=== PATIENT | male | born 1955 | race Caucasian/White ===

== ENCOUNTER 2020-04-05 00:49 | Observation (INO) ==
[2020-04-05] MEDS ORDERED: ACETAMINOPHEN 1,000 MG/100 ML VIAL IV STA (01:04)
[2020-04-05] MEDS ORDERED: SODIUM CHLORIDE 0.9% 500 ML IV ONE (01:04)
[2020-04-05] MEDS ORDERED: ONDANSETRON INJ 2 MG/ML 2 ML VIAL IV STA (01:04)
--- NOTE | 2020-04-05 01:10 | Emergency Department Note ---
History of Present Illness General Chief complaint: Abdominal Pain Stated complaint: ABDOMINAL PAIN Time Seen by Provider: 04/05/20 00:58 History of Present Illness Maximum Pain Intensity: 5 This 64-year-old presents to the ER complaining of epigastric pain that wraps around to the back Location: Upper abdomen Quality: Painful Severity: Moderate Duration: Tonight Timing: Started around 9 PM Context: Patient was concerned and came in Modifying factors: better with nothing; worse with nothing Patient had a sandwich for dinner. He has vomited a few times. Patient denies chest pain, dyspnea, fevers, flulike illness, urinary symptoms. No history of similar symptoms in the past. States he does not smoke or drink. He states he has no active medical problems. Home Medications Home Medications Medication Instructions Recorded Confirmed Type montelukast 10 mg PO DAILY 04/05/20 04/05/20 History Allergies Allergy/AdvReac Type Severity Reaction Status Date / Time No Known Allergies Allergy Mild Unverified 01/10/08 09:36 Past Med/Surg History Medical History No acute medical problems Surgical History No pertinent past surgical history Social History Smoking Status: Never smoker Feels Safe at Home: Yes Review of Systems A total of 10 systems reviewed and were otherwise negative Physical Exam Vital Signs Vital Signs - 24 hr 04/05/20 00:53 04/05/20 01:37 04/05/20 04:51 Temperature 36.4 C L Temperature Source Oral Pulse Rate 51 L 51 L Pulse Rate from SpO2 Sensor 56 L Respiratory Rate 20 20 Respiratory Effort / Characteristics Non-Labored Spontaneous Respiratory Depth Normal Blood Pressure 155/81 H 151/82 H 137/75 Blood Pressure Mean 105 102 95 Pulse Oximetry 100 98 98 Oxygen Delivery Method Room Air Room Air Room Air Sepsis Recent Fever Within 48 Hours No Sepsis New/Unexplained Change in Mental Status No Sepsis Action Taken by Nursing No Action Required VITALS: Vitals are noted on the nurse's note and reviewed by myself. Vital signs stable. GENERAL: Pleasant male pacing the room who appears in pain, in no acute distress, nondiaphoretic, well-developed well-nourished. SKIN: Capillary reflex less than 2 seconds. HEENT: Normocephalic. PERRLA. EOMI. Nares patent. Mucous membranes moist. Neck is supple without nuchal rigidity. HEART: Regular rate and rhythm LUNGS: Clear to auscultation bilaterally without wheezes, rales or rhonchi. No retractions or accessory muscle use. ABDOMEN: Positive bowel sounds x 4. Normal tympanic percussion. Soft, nontender, without masses or organomegaly. Mendez sign negative. No guarding or rebound tenderness. No CVA tenderness MUSCULOSKELETAL: No gross musculoskeletal defects. NEURO: Patient was alert and oriented to person place and time. No focal neurological deficits. Course Administered Medications Discontinued Medications Sodium Chloride (Nss) 500 mls @ 999 mls/hr IV .Q31M ONE Stop: 04/05/20 01:34 Last Infusion: 04/05/20 02:16 Dose: 0 mls/hr Documented by: [id number] Admin: 04/05/20 01:31 Dose: 999 mls/hr Documented by: [id number] Acetaminophen (Ofirmev) 1,000 mg in 100 mls @ 400 mls/hr IV NOW STA Stop: 04/05/20 01:18 Last Infusion: 04/05/20 02:16 Dose: 0 mls/hr Documented by: [id number] Admin: 04/05/20 01:31 Dose: 400 mls/hr Documented by: [id number] Piperacillin Sod/Tazobactam Sod (Zosyn) 4.5 gm in 120 mls @ 240 mls/hr IV NOW ONE Stop: 04/05/20 02:12 Last Infusion: 04/05/20 03:19 Dose: 0 mls/hr Documented by: [id number] Admin: 04/05/20 02:20 Dose: 240 mls/hr Documented by: [id number] Pantoprazole Sodium 80 mg/ (Dextrose) 100 mls @ 400 mls/hr IV ONE STA Stop: 04/05/20 01:58 Last Admin: 04/05/20 03:53 Dose: Not Given Documented by: [id number] Ioversol (Ioversol 100ml) 100 ml IV ONCE ONE Stop: 04/05/20 01:58 Last Admin: 04/05/20 01:57 Dose: 94 ml Documented by: [id number] Ondansetron HCl (Ondansetron Inj 2 Mg/Ml 2 Ml Vial) 4 mg IV NOW STA Stop: 04/05/20 01:05 Last Admin: 04/05/20 01:31 Dose: 4 mg Documented by: [id number] Medical Decision Making Medical Records Attestation: I reviewed the patient's medical records. Home Medications Current Medication List: was personally reviewed by me Laboratory Data Attestation: I reviewed the patient's lab results. Result diagrams: 04/05/20 01:32 04/05/20 01:32 Lab Results 04/05/20 04/05/20 04/05/20 Range/Units 01:32 01:32 02:13 WBC 15.70 H (4.8-10.8) K/uL RBC 4.92 (4.7-6.1) M/uL Hgb 14.1 (14.0-18.0) g/dL Hct 44.1 (42-52) % MCV 89.6 (80-100) fL MCH 28.7 (25-34) pg MCHC 32.0 (32-36) g/dL RDW Std Deviation 42.8 (36.4-46.3) fL RDW Coeff of Miguel 13.1 (11.5-14.5) % Plt Count 199 (130-400) K/uL MPV 10.5 H (7.4-10.4) fL Immature Gran % (Auto) 0.3 % Neut % (Auto) 91.0 % Lymph % (Auto) 4.7 % [place] % (Auto) 3.8 % Eos % (Auto) 0.1 % Baso % (Auto) 0.1 % Neut # (Auto) 14.28 H (1.4-6.5) K/uL Lymph # (Auto) 0.74 L (1.2-3.4) K/uL [place] # (Auto) 0.60 H (0.11-0.59) K/uL Eos # (Auto) 0.02 (0-0.5) K/uL Baso # (Auto) 0.02 (0-0.2) K/uL Immature Gran # (Auto) 0.04 H (0.00-0.02) K/uL Sodium 141 (136-145) mmol/L Potassium 4.1 (3.5-5.1) mmol/L Chloride 107 (98-107) mmol/L Carbon Dioxide 29 (21-32) mmol/L Anion Gap 5.0 (3-11) BUN 27 H (7-18) mg/dl Creatinine 1.22 (0.6-1.4) mg/dl Est Cr Clr Drug Dosing 67.1 ml/min Est GFR ( Amer) 72.2 Est GFR (Non-Af Amer) 62.3 BUN/Creatinine Ratio 21.9 H (10-20) Glucose 129 H (70-99) mg/dl Lactate 1.4 (0.4-2.0) mmol/L Calcium 8.7 (8.5-10.1) mg/dl Total Bilirubin 0.4 (0.2-1) mg/dl AST 37 (15-37) U/L ALT 33 (12-78) U/L Alkaline Phosphatase 120 H (45-117) U/L Troponin I < 0.015 (0-0.045) ng/ml Total Protein 7.8 (6.4-8.2) gm/dl Albumin 4.2 (3.4-5.0) gm/dl Globulin 3.6 (2.5-4.0) gm/dl Albumin/Globulin Ratio 1.2 (0.9-2) Lipase 254 (73-393) U/L Urine Color Urine Appearance (Clear) Urine pH (4.5-7.5) Ur Specific [place] (1.000-1.030) Urine Protein (Negative) Urine Glucose (UA) (Negative) Urine Ketones (Negative) Urine Blood (Negative) Urine Nitrite (Negative) Urine Bilirubin (Negative) Urine Urobilinogen (Negative) Ur Leukocyte Esterase (Negative) COVID-19 Eval Order Blood Type Antibody Screen 04/05/20 04/05/20 04/05/20 Range/Units 02:13 04:00 04:40 WBC (4.8-10.8) K/uL RBC (4.7-6.1) M/uL Hgb (14.0-18.0) g/dL Hct (42-52) % MCV (80-100) fL MCH (25-34) pg MCHC (32-36) g/dL RDW Std Deviation (36.4-46.3) fL RDW Coeff of Miguel (11.5-14.5) % Plt Count (130-400) K/uL MPV (7.4-10.4) fL Immature Gran % (Auto) % Neut % (Auto) % Lymph % (Auto) % [place] % (Auto) % Eos % (Auto) % Baso % (Auto) % Neut # (Auto) (1.4-6.5) K/uL Lymph # (Auto) (1.2-3.4) K/uL [place] # (Auto) (0.11-0.59) K/uL Eos # (Auto) (0-0.5) K/uL Baso # (Auto) (0-0.2) K/uL Immature Gran # (Auto) (0.00-0.02) K/uL Sodium (136-145) mmol/L Potassium (3.5-5.1) mmol/L Chloride (98-107) mmol/L Carbon Dioxide (21-32) mmol/L Anion Gap (3-11) BUN (7-18) mg/dl Creatinine (0.6-1.4) mg/dl Est Cr Clr Drug Dosing ml/min Est GFR ( Amer) Est GFR (Non-Af Amer) BUN/Creatinine Ratio (10-20) Glucose (70-99) mg/dl Lactate (0.4-2.0) mmol/L Calcium (8.5-10.1) mg/dl Total Bilirubin (0.2-1) mg/dl AST (15-37) U/L ALT (12-78) U/L Alkaline Phosphatase (45-117) U/L Troponin I (0-0.045) ng/ml Total Protein (6.4-8.2) gm/dl Albumin (3.4-5.0) gm/dl Globulin (2.5-4.0) gm/dl Albumin/Globulin Ratio (0.9-2) Lipase (73-393) U/L Urine Color Yellow Urine Appearance Clear (Clear) Urine pH 5.0 (4.5-7.5) Ur Specific [place] 1.030 (1.000-1.030) Urine Protein Negative (Negative) Urine Glucose (UA) Negative (Negative) Urine Ketones Trace H (Negative) Urine Blood Negative (Negative) Urine Nitrite Negative (Negative) Urine Bilirubin Negative (Negative) Urine Urobilinogen Negative (Negative) Ur Leukocyte Esterase Negative (Negative) COVID-19 Eval Order Covid19 IDNow [facility] Blood Type O Negative Antibody Screen NEGATIVE Imaging Data Attestation: I personally reviewed and interpreted this imaging study as follows: MDM Narrative Prior records/ancillary studies reviewed. Triage Nursing notes reviewed. The patient's history was concerning for abdominal pain. Differential diagnosis: Etiologies such as appendicitis, diverticulitis, PUD, biliary pathology, UTI, pancreatitis, obstruction, mesenteric ischemia, aortic pathology, infections, inflammatory bowel disease, renal colic, as well as others were entertained. Physical examination findings: As above. ER treatment provided: An order was placed for continuous cardiac monitoring. The monitor shows a rate of 50-100 with a sinus rhythm. Tylenol, Zofran, Zosyn, IV fluids, Protonix On reassessment the patient felt better. Diagnostics interpreted by me: ECG: Normal sinus, normal intervals, no acute ST-T wave changes. Impression sinus bradycardia interpreted by myself EKG ordered for epigastric pain I think arrhythmia is unlikely. EKG shows normal sinus rhythm with no interval abnormalities such as QT prolongation or WPW. There are no findings to suggest Brugada syndrome. Cardiac monitoring in the emergency department reveals no tachycardic or bradycardic dysrhythmia. Hypertrophic cardiomyopathy was considered but there are no clear historical elements pointing toward this. EKG is not suggestive. The QRS voltage is not extremely large and there are no suggestive Q waves. The labs revealed leukocytosis, negative lactic acid Blood cultures pending Imaging studies: Chest x-ray concerning for free air underneath the right diaphragm for my interpretation. CT ABDOMEN & PELVIS With Contrast: No free air is visualized within the abdomen or pelvis. Normal appearance of the bowel. The appendix appears normal. The gallbladder is mildly distended with a small amount of surrounding pericholecystic fluid. No definite gallstone is seen. A right upper quadrant ultrasound would be a more sensitive exam to detect cholelithiasis if acute cholecystitis is a concern. Radiologist: Renata Osborne M.D. US RUQ: Limited examination due to bowel gas- most of exam was performed intercostally. Gallbladder wall is mildly thickened measuring just over 3 mm. There are echogenic nonvascular structures within the lumen of the gallbladder which likely represent small stones. Small amount of pericholecystic fluid is visualized. Findings could represent acute cholecystitis in the appropriate clinical setting. Radiologist: Renata Osborne M.D. Consultation: A consultation was placed with the surgical PAAly. The case was discussed and diagnostics were reviewed. The patient was evaluated in the ER for further treatment. Exam and history seem consistent with cholecystitis. Surgery evaluated and will admit. chest x-ray was concerning for free air so patient was immediately given Zosyn and 2 lines were placed and Protonix for possible peptic ulcer rupture. CAT scan was reviewed and negative per radiology. Ultrasound was ordered. Patient is admitted to the surgical service. By the evaluation outlined above emergent etiologies such as appendicitis, diverticulitis, PUD, UTI, pancreatitis, obstruction, mesenteric ischemia, aortic pathology,inflammatory bowel disease, renal colic, as well as others were deemed relatively unlikely. The pt informed about the findings as listed above. All questions were answered and pleased with the treatment. The chart was completed utilizing [employer] Speech voice recognition software. Grammatical errors, random word insertions, pronoun errors, and incomplete sentences are an occassional consequence of this system due to software limitations, ambient noise, and hardware issues. Any formal questions or concerns about the content, text, or information contained within the body of this dictation should be directly addressed to the physician project administrative assistant for clarification. Impression & Plan Cholecystitis Discharge Plan Visit Data Chief Complaint: Abdominal Pain Stated Complaint: ABDOMINAL PAIN ED Provider: Chhaya Cervantes ED Midlevel Provider: Cristal Pittman Discharge Problem: Cholecystitis Patient Disposition: Being Evaluated by Surgeon Condition: Good Forms Stand Alone Forms: Fisgo Prescriptions Prescriptions: No Action montelukast 10 mg tablet 10 mg PO DAILY RF: 0 Referrals Referrals: Javi Mcdaniels DO [Primary Care Provider] -
[2020-04-05 01:43] LABS: Basophils # (auto) 0.02 K/uL (0-0.2); Basophils % (auto) 0.1 %; Eosinophils # (auto) 0.02 K/uL (0-0.5); Eosinophils % (auto) 0.1 %; Hematocrit (blood only) 44.1 % (42-52); Hemoglobin 14.1 g/dL (14.0-18.0); Immature Granulocytes # (auto) 0.04 K/uL (0.00-0.02); Immature Granulocytes % (auto) 0.3 %; Lymphocytes # (auto) 0.74 K/uL (1.2-3.4); Lymphocytes % (auto) 4.7 %; Mean Corpuscular Hemoglobin 28.7 pg (25-34); Mean Corpuscular Volume 89.6 fL (80-100); Mean Platelet Volume 10.5 fL (7.4-10.4); Monocytes % (auto) 3.8 %; Neutrophils # (auto) 14.28 K/uL (1.4-6.5); Platelet Count 199 K/uL (130-400); RDW Coefficient of Variation 13.1 % (11.5-14.5); RDW Standard Deviation 42.8 fL (36.4-46.3); Red Blood Count 4.92 M/uL (4.7-6.1)
[2020-04-05] MEDS ORDERED: PIPERACILLIN/TAZOBACTAM 4.5 GM/120 ML BAG IV ONE (01:43)
[2020-04-05] MEDS ORDERED: PIPERACILL/TAZOBAC CONSULT ACTIVE PRN ×2 (01:43→08:42)
[2020-04-05] MEDS ORDERED: PANTOprazole 80 MG in DEXTROSE 5% 100 ML IV STA (01:44)
[2020-04-05] MEDS ORDERED: IOVERSOL 100ml IV ONE (01:57)
[2020-04-05 02:09] LABS: Alanine Aminotransferase 33 U/L (12-78); Albumin Level 4.2 gm/dl (3.4-5.0); Aspartate Aminotransferase 37 U/L (15-37); BUN Creatinine Ratio 21.9 (10-20); Blood Urea Nitrogen 27 mg/dl (7-18); Calcium 8.7 mg/dl (8.5-10.1); Carbon Dioxide 29 mmol/L (21-32); Chloride 107 mmol/L (98-107); Creatinine Clr Calc Pharmacy 67.1 ml/min; Est GFR (African American) 72.2; Est GFR (Non-African American) 62.3; Glucose 129 mg/dl (70-99); Lipase 254 U/L (73-393); Potassium 4.1 mmol/L (3.5-5.1); Sodium 141 mmol/L (136-145)
[2020-04-05 02:14] LABS: Albumin Globulin Ratio 1.2 (0.9-2); Alkaline Phosphatase 120 U/L (45-117); Bilirubin,Total 0.4 mg/dl (0.2-1); Globulin 3.6 gm/dl (2.5-4.0); Total Protein 7.8 gm/dl (6.4-8.2); Troponin I < 0.015 ng/ml (0-0.045)
[2020-04-05 04:14] LABS: Appearance Urine Clear (Clear); Bilirubin Urine Negative (Negative); Blood Urine Negative (Negative); Color Urine Yellow; Glucose Urine UA Negative (Negative); Ketones Urine Trace (Negative); Leukocyte Esterase Urine Negative (Negative); Nitrite Urine Negative (Negative); Protein Urine Negative (Negative); Urobilinogen Urine Negative (Negative)
--- NOTE | 2020-04-05 04:34 | History & Physical Report ---
Date of Service April 05, 2020 Assessment & Plan (1) Cholecystitis: -will admit to hospital an d plan on cholecystectomy -kep npo -hydrate with IVF -continue abx--he has received zosyn in ED -provide analgesics -provide anti-emetics -use SCDs for DVT prevention -EKG and CXR completed -COVID-19 test ordered and pending Dr[address] Granados-I did see the patient in the emergency room and he does appear to be stable I discussed laparoscopic cholecystectomy, possible open operation possible cholangiography With the patient and his they do understand and do wish to proceed We will proceed later today Asked [facility] to follow along History of Present Illness Chief Complaint: Abdominal Pain Primary Care Provider: Javi Mcdaniels, DO 64 year old male developed subcostal abdominal pain last night, about 1 hour after eating a snack. The pain was non-radiating with no other provocative factors. The pain was improved with analgesics provided in the ED. He denies fevers or diarrhea, but did have N/V. In the ED, he was afebrile with WBC of 15.7. CXR showed no pneumonia, but concern was noted for free air. A follow-up CT scan showed no free air, but GB wall thickening and pericholecystic fluid was noted. These findings were confirmed with US, along with possible gallstones. EKG showed sinus bradycardia without concern for ischemic changes The pt. states he is otherwise healthy, working out, biking and running several times per week. With his exercise, he denies CP, SOB, or unusual fatigue. At the time of my exam he was resting comfortably in bed, in no distress. Allergies Allergy/AdvReac Type Severity Reaction Status Date / Time No Known Allergies Allergy Mild Unverified 01/10/08 09:36 Home Medications Home Medications Medication Instructions Recorded Confirmed Type montelukast 10 mg PO DAILY 04/05/20 04/05/20 History Past Med/Surg History Medical History No acute medical problems Surgical History No pertinent past surgical history Social History Smoking Status: Never smoker Feels Safe at Home: Yes Review of Systems Constitutional: no fever and no sweats Eyes: no diplopia Ear, Nose, Mouth, Throat: no ear pain Respiratory: no cough and no dyspnea Cardiovascular: no chest pain Gastrointestinal: + abdominal pain, + nausea and + vomiting; no diarrhea/loose stools Genitourinary: no dysuria Musculoskeletal: no back pain Integumentary: no rash Neurologic: no localized weakness Physical Exam Constitutional: well developed and well nourished; no acute distress Eyes: no conjunctival abnormality ENMT: Ears: no hearing impairment Neck: trachea midline Respiratory: normal respiratory effort, lungs clear to auscultation Cardiovascular: Rate/Rhythm: regular rate and regular rhythm Gastrointestinal (Abdomen): soft, non-distended, no rebound tenderness or guarding, minimal pain with palpation, although deep palpation of RUQ caused some discomfort, Mendez's sign (-) Musculoskeletal: n ocalf pain Skin: no rashes, warm and dry Neurologic: moves all extremities Psychiatric: A+Ox3, euthymic affect Results & Data Results & Data ([facility]) Vital Signs (Past 12 Hours) Vital Signs Temp Pulse Resp BP Pulse Ox 04/05/20 01:37 51 L 20 151/82 H 98 04/05/20 00:53 36.4 C L 51 L 20 155/81 H 100 PG Care Time/CCT Total # of Minutes Spent Total Time Spent with Patient: Total time spent is greater than 50% in coordination of care (as documented) at patient's floor/unit and/or counseling patient: Coding Level of Care Code 91803 Initial Inpt Care Lvl 3 Diagnoses Cholecystitis K81.9
--- NOTE | 2020-04-05 06:34 | Ultrasound Report ---
US gallbladder HISTORY: 64 years-old Male ruq pain acute right upper quadrant abdominal pain COMPARISON: CT abdomen and pelvis of same day TECHNIQUE: Multiple real-time sonographic images of the abdominal right upper quadrant were obtained assessing grayscale appearance and color flow FINDINGS: The visualized pancreas is unremarkable. Study is limited secondary to obscuring bowel gas. Liver is within normal limits. Small amount of pericholecystic fluid. The gallbladder wall is mildly thickened measuring up to 3.3 mm. Shadowing cholelithiasis with gallbladder sludge. Mild gallbladder distentio n. The patient was given pain medication prior to the study, therefore sonographic Mendez's sign was unable to be evaluated. Normal common bile duct, 4 mm. The imaged right kidney is unremarkable withou t hydronephrosis. IMPRESSION: 1. Limited study secondary to obscuring bowel gas. 2. Distended gallbladder with wall thickening, pericholecystic fluid and probable cholelithiasis. Fin dings are suspicious for acute cholecystitis in the appropriate clinical setting. 3. No biliary ductal dilation. ACT 112: Negative or not required by law. The above report was generated using voice recognition software. It may contain grammatical, syntax o r spelling errors. Electronically signed by: Branden Lion M.D. 04/05/2020 6:33 AM
--- NOTE | 2020-04-05 07:10 | XRay Report ---
XR chest 1V portable CLINICAL HISTORY: Epigastric pain. COMPARISON STUDY: No previous studies for comparison. FINDINGS: Lung volumes are normal. Lungs are clear. There is no pneumothorax or pleural effusion. Car diac size is normal. Mediastinal contours are normal. There is no evidence for pulmonary edema. IMPRESSION: No acute cardiopulmonary findings. ACT 112: Negative or not required by law. Electronically signed by: Luciano Mustafa M.D. 04/05/2020 7:08 AM
--- NOTE | 2020-04-05 07:35 | CT Scan Report ---
ABDOMEN AND PELVIS CT WITH IV CONTRAST CT DOSE: 536.72 mGy.cm HISTORY: Acute severe right upper quadrant abdominal pain epi pain that wraps around to back TECHNIQUE: Multiaxial CT images of the abdomen and pelvis were performed following the IV administrat ion of 94 cc of Optiray 320, A dose lowering technique was utilized adhering to the principles of AL FAIZAN. COMPARISON STUDY: Right upper quadrant abdominal ultrasound of same day FINDINGS: 6 mm nodular opacity of the lateral basal segment right lower lobe on image 54 series 3, ma y reflect an area of linear scarring. 4 mm subpleural nodule of the lateral basal segment left lower lobe. There is no pneumatosis or pneumoperitoneum. The imaged inferior cardiac chambers are unremarka ble with coronary artery calcifications. The spleen, pancreas and adrenal glands are unremarkable. Th ere is mild periportal edema with otherwise unremarkable appearance of the liver. Gallbladder is mild ly distended and demonstrates wall thickening with small amount of pericholecystic fluid. No definite cholelithiasis, choledocholithiasis or biliary ductal dilation. Patency of the hepatic and portal ve ins. Unremarkable right kidney. 2.2 cm cyst of the anterior interpolar left kidney with a few additional s ubcentimeter left renal hypodensities which are too small to characterize however also favors cysts. No renal or ureteral calculi or obstructive uropathy. Partially decompressed urinary bladder. Mild pr ostamegaly. No aortic aneurysm or adenopathy. Radiodense material is noted within the gastric lumen. Mild rectal wall thickening is likely secondar y to partial distention. Colonic diverticulosis without acute diverticulitis. Normal appendix. Stool- filled terminal ileum suggest decreased small bowel transit. Unremarkable soft tissues. Moderate disc space narrowing at L5-S1. Bones appear intact. IMPRESSION: 1. Gallbladder distention with associated wall thickening and pericholecystic fluid. No cholelithiasi s identified. Correlate with right upper quadrant abdominal ultrasound of same day to exclude acute c holecystitis. 2. No biliary ductal dilation. 3. No bowel obstruction. 4. Normal appendix. 5. There are two subpleural nodular foci of the lung bases measuring up to 6 mm. Correlation with a n onemergent follow-up chest CT may be considered to evaluate for additional pulmonary nodules and to d etermine appropriate follow-up. 6. Additional findings as above. ACT 112: Negative or not required by law. The above report was generated using voice recognition software. It may contain grammatical, syntax o r spelling errors. Electronically signed by: Branden Lion M.D. 04/05/2020 7:34 AM
[2020-04-05] MEDS ORDERED: PROMETHAZINE HCL 12.5 MG in SODIUM CHLORIDE 0.9% 50 ML IV PRN (08:42)
[2020-04-05] MEDS ORDERED: ONDANSETRON INJ 2 MG/ML 2 ML VIAL IV PRN ×3 (08:42→13:00)
[2020-04-05] MEDS ORDERED: PROMETHAZINE HCL 25 MG in SODIUM CHLORIDE 0.9% 50 ML IV PRN (08:42)
[2020-04-05] MEDS ORDERED: MoRPHine SULFATE 2 MG/ML CARP IV PRN (08:42)
[2020-04-05] MEDS ORDERED: HYDROmorphone INJ 0.5 MG/0.5 ML SYR IV PRN (08:42)
[2020-04-05] MEDS ORDERED: HYDROmorphone INJ 1 MG/ML SYRINGE IV PRN (08:42)
--- NOTE | 2020-04-05 09:54 | Consultation ---
Date of Consultation April 05, 2020 Assessment & Plan (1) Cholecystitis: Acute cholecystitis Leukocytosis, 15k LFTS WNL No s/sx of sepsis, blood culture pending sx much improved pt admitted to med/surg by gen surg consulted for med management continue NPO status for surgery later today IV zosyn pain/wound management per ortho encourage incentive spirometry (2) Prediabetes: Last A1C 02/2020 6.0 diet and lifestyle modifications add bsg, hypoglycemic protocol given NPO status (3) HLD (hyperlipidemia): controlled with diet and exercise follow Dr. Mcdaniels (4) DVT prophylaxis: SCD/TEDS, per attending Disposition: to undergo lap cleo later today Follow up: PCP Dr. Mcdaniels upon discharge Pt was seen and examined in collaboration with Dr. Degroot, please see addendum Supervising Physician Co-Signing Physician Notes I have seen and examined the patient and have discussed the case with the provider above. I agree with the assessment and plan as stated. I reviewed the records preoperatively and there were no contraindications to proceeding with surgery today. I saw and examined the patient post-operatively who was doing very well. He had tolerating regular food, and was able to move around his bed with ease and little pain. He was ambulatory. He was encouraged to take it easy. Zosyn was running perioperatively. Overall looks well and good plan currently. Thank you for this consultation. DO Zane History of Present Illness Requesting Physician: Dr. Granados Reason for Consultation: Medical management Atten ding Physician: Lele Granados MD, [facility] History of Present Illness This is a 64-year-old male who is significant past medical history of diet-controlled hyperlipidemia, prediabetes and elevated PSA who presents to ED secondary to abdominal pain. He underwent CT abdomen pelvis as well as gallbladder ultrasound which revealed distended gallbladder with wall thickening, pericholecystic fluid and probable cholelithiasis. Findings suspicious for acute cholecystitis. No biliary ductal dilatation. CBC revealed relative leukocytosis, LFTs unremarkable, BMP consistent with mild hyperglycemia. He was admitted to undergo laparoscopic cholecystectomy later today. We have been consulted for medical management. Currently he feels much improved and denies any abdominal pain. He denies any fever, chills, sweats, lightheadedness, dizziness, chest pain, shortness breath, cough, nausea, vomiting, dysuria, increased urgency or frequency with urination, melena, hematochezia. Last BM 8:30 AM yesterday. He admits to enzo colored stools for the last several months. He states last evening for dinner he had a sub and 2 chocolate chip cookies with skin milk at approximately 830. Later that evening he developed right upper quadrant and epigastric pain that persistently got worse. He had persistent nausea with 2 episodes of vomiting. Due to worsening symptoms he presented to ED. He does not take any medications at home. He is very active and goes to the gym 2 to 3 days a week. During those days he runs 3 to 6 miles 2 days a week and bikes the other day. He denies any chest pain or shortness of breath when undergoing these activities. He does have a strong family history of heart disease but does not have any prior history of heart disease. He denies smoking or alcohol use. Medical records reviewed in [facility]. Allergies Allergy/AdvReac Type Severity Reaction Status Date / Time No Known Allergies Allergy Mild Unverified 04/05/20 12:09 Patient History Medical History (Updated 04/05/20 @ 12:41 by Vicky Martinez MD) Elevated PSA HLD (hyperlipidemia) Prediabetes Surgical History (Updated 04/05/20 @ 13:40 by Bela Moore RN) History of colonoscopy with polypectomy 2006 with hyperplastic polyp removal Colonoscopy in 2017 revealed diverticulosis History of thumb surgery Left status post fracture History of tonsillectomy and adenoidectomy Hx laparoscopic cholecystectomy (04/05/20) Laparoscopic Cholecystectomy Dr. 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 Beliefs That Will Affect Care: None Current Living Situation: Spouse Other Information That Helps Us Care for You: No Feels Safe at Home: Yes Safety Concerns: Feels Safe At This Time Assistive Devices: Glasses Review of Systems Review of Systems: All systems reviewed & are unremarkable except as noted in HPI & below Physical Exam Physical Exam: Constitutional: WD/WN, vitals as above, NAD, sitting up in bed, pleasant, conversing easily Head: Normocephalic, Atraumatic Eyes: PERRL, conjunctivae normal, anicteric sclerae ENMT: external ear and nose normal, oropharynx normal Neck: trachea midline, no thyromegaly normal visual inspection Respiratory: normal respiratory effort, lungs clear to auscultation, no wheeze, rales, rhonchi. Normal insp/exp effort, no accessory muscle use Cardiovascular: bradycardic rate, reg rhythm, no murmur, no edema Vessels: no JVD or carotid bruit Chest: normal inspection of chest Abdomen: normal bowel sounds, soft, nontender, no hepatosplenomegaly Musculoskeletal: no cyanosis or clubbing, extremities motor strength 5/5 Skin: no rashes, warm and dry normal turgor Neurologic: PERRL, EOMI, accommodation nl, no face palsy, no dysarthria CN's II-XI intact bilaterally and moves all extremities Psychiatric: A+Ox3, euthymic affect : deferred Results & Data ([facility]) Vital Signs (Past 12 Hours) Vital Signs Temp Pulse Pulse Resp BP BP Pulse Ox 04/05/20 09:22 36.8 C 60 18 148/80 H 96 04/05/20 08:50 36.8 C 60 18 148/60 H 96 04/05/20 07:45 54 L 16 117/77 95 04/05/20 06:30 125/76 97 04/05/20 06:00 124/77 98 04/05/20 05:30 113/73 98 04/05/20 05:00 120/74 97 04/05/20 04:51 137/75 98 04/05/20 01:37 51 L 20 151/82 H 98 04/05/20 00:53 36.4 C L 51 L 20 155/81 H 100 Laboratory Results Short CBC 04/05/20 04/05/20 Range/Units 01:32 01:32 WBC 15.70 H (4.8-10.8) K/uL Hgb 14.1 (14.0-18.0) g/dL Hct 44.1 (42-52) % Plt Count 199 (130-400) K/uL Creatinine 1.22 (0.6-1.4) mg/dl BMP 04/05/20 01:32 Sodium 141 Potassium 4.1 Chloride 107 Carbon Dioxide 29 BUN 27 H Creatinine 1.22 Glucose 129 H Calcium 8.7 Cardiac Enzymes 04/05/20 Range/Units 01:32 Troponin I < 0.015 (0-0.045) ng/ml Liver Function 04/05/20 Range/Units 01:32 Total Bilirubin 0.4 (0.2-1) mg/dl AST 37 (15-37) U/L ALT 33 (12-78) U/L Alkaline Phosphatase 120 H (45-117) U/L Albumin 4.2 (3.4-5.0) gm/dl Urine 04/05/20 Range/Units 04:00 Urine Color Yellow Urine Appearance Clear (Clear) Urine pH 5.0 (4.5-7.5) Ur Specific [place] 1.030 (1.000-1.030) Urine Protein Negative (Negative) Urine Glucose (UA) Negative (Negative) Diagnostic Findings Gallbladder US: IMPRESSION: 1. Limited study secondary to obscuring bowel gas. 2. Distended gallbladder with wall thickening, pericholecystic fluid and probable cholelithiasis. Findings are suspicious for acute cholecystitis in the appropriate clinical setting. 3. No biliary ductal dilation. CXR: IMPRESSION: No acute cardiopulmonary findings. CT Abd/pelvis: IMPRESSION: 1. Gallbladder distention with associated wall thickening and pericholecystic fluid. No cholelithiasis identified. Correlate with right upper quadrant abdominal ultrasound of same day to exclude acute cholecystitis. 2. No biliary ductal dilation. 3. No bowel obstruction. 4. Normal appendix. 5. There are two subpleural nodular foci of the lung bases measuring up to 6 mm. Correlation with a nonemergent follow-up chest CT may be considered to evaluate for additional pulmonary nodules and to determine appropriate follow-up. 6. Additional findings as above. Medications Administered Discontinued Medications Sodium Chloride (Nss) 500 mls @ 999 mls/hr IV .Q31M ONE Stop: 04/05/20 01:34 Last Infusion: 04/05/20 02:16 Dose: 0 mls/hr Documented by: [id number] Admin: 04/05/20 01:31 Dose: 999 mls/hr Documented by: [id number] Acetaminophen (Ofirmev) 1,000 mg in 100 mls @ 400 mls/hr IV NOW STA Stop: 04/05/20 01:18 Last Infusion: 04/05/20 02:16 Dose: 0 mls/hr Documented by: [id number] Admin: 04/05/20 01:31 Dose: 400 mls/hr Documented by: [id number] Piperacillin Sod/Tazobactam Sod (Zosyn) 4.5 gm in 120 mls @ 240 mls/hr IV NOW ONE Stop: 04/05/20 02:12 Last Infusion: 04/05/20 03:19 Dose: 0 mls/hr Documented by: [id number] Admin: 04/05/20 02:20 Dose: 240 mls/hr Documented by: [id number] Pantoprazole Sodium 80 mg/ (Dextrose) 100 mls @ 400 mls/hr IV ONE STA Stop: 04/05/20 01:58 Last Admin: 04/05/20 03:53 Dose: Not Given Documented by: [id number] Ioversol (Ioversol 100ml) 100 ml IV ONCE ONE Stop: 04/05/20 01:58 Last Admin: 04/05/20 01:57 Dose: 94 ml Documented by: [id number] Ondansetron HCl (Ondansetron Inj 2 Mg/Ml 2 Ml Vial) 4 mg IV NOW STA Stop: 04/05/20 01:05 Last Admin: 04/05/20 01:31 Dose: 4 mg Documented by: [id number] ECG Rate (beats per minute): 50 Rhythm: sinus bradycardia
[2020-04-05] MEDS ORDERED: GLUCAGON FOR INJ 1 MG VIAL SQ PRN (09:55)
[2020-04-05] MEDS ORDERED: DEXTROSE 50% 50 ML SYRINGE IV PRN (09:55)
[2020-04-05] MEDS ORDERED: GLUCOSE 10 TABS/TUBE PO PRN (09:55)
[2020-04-05] MEDS ORDERED: GLUCOSE 40% GEL 15 GM TUBE PO PRN (09:55)
[2020-04-05] MEDS ORDERED: CARBOHYDRATES FOR HYPOGLYCEMIA PO PRN (09:55)
[2020-04-05] MEDS: LACTATED RINGER'S 1,000 ML IV SCH ×2 (10:06→16:01)
[2020-04-05] MEDS: PIPERACILLIN/TAZOBACTAM 3.375 GM in DEXTROSE 5% 100 ML IV SCH ×2 (10:06→18:40)
--- NOTE | 2020-04-05 11:51 | Electrocardiogram Report ---
Test Reason : Blood Pressure : / mmHG Vent. Rate : 050 BPM Atrial Rate : 050 BPM P-R Int : 144 ms QRS Dur : 080 ms QT Int : 486 ms P-R-T Axes : 013 027 008 degrees QTc Int : 443 ms Sinus bradycardia Otherwise normal ECG When compared with ECG of 12-JAN-2008 16:27, Vent. rate has decreased BY 24 BPM Confirmed by Lenin Nicholas ([id number]) on 04/05/2020 11:51:34 AM Referred By: REFERRED SELF Confirmed By:Lenin Nicholas
[2020-04-05] MEDS ORDERED: PROPOFOL IV EMULSION 10 MG/ML 20 ML VIAL IV ONE (12:04)
[2020-04-05] MEDS ORDERED: GLYCOPYRROLATE 0.2 MG/ML VIAL ONE (12:04)
[2020-04-05] MEDS ORDERED: fentaNYL citrate 100 MCG/2 ML VIAL ONE ×2 (12:04)
[2020-04-05] MEDS ORDERED: NEOSTIGMINE METHYLSULFATE 5 MG/5 ML SYR ONE (12:04)
[2020-04-05] MEDS ORDERED: LIDOCAINE HCL 2% 2 ML VIAL/AMP(20MG/ML) INFIL ONE (12:04)
[2020-04-05] MEDS ORDERED: DEXAMETHASONE SOD INJ 4 MG/ML VIAL ONE (12:04)
[2020-04-05] MEDS ORDERED: ONDANSETRON INJ 2 MG/ML 2 ML VIAL ONE (12:04)
[2020-04-05] MEDS ORDERED: MIDAZOLAM HCL 1 MG/ML 2ML VIAL ONE (12:04)
[2020-04-05] MEDS ORDERED: ROCURONIUM BROMIDE 10 MG/ML 5 ML VIAL IV ONE (12:05)
[2020-04-05] MEDS ORDERED: LARYING-O-JET KIT (LTA) ONE (12:05)
[2020-04-05] MEDS ORDERED: BUPIVACAINE 0.5 % 5 MG/1 ML MPF 30ML VIAL ONE (12:22)
--- NOTE | 2020-04-05 12:37 | Anesthesiology Consultation ---
Date of Service April 05, 2020 Assessment & Plan (1) Encounter for pre-operative examination: Chart Review Chart Review: Acceptable Risk for Surgery and Patient NOT seen in Pre Admission Testing Consults Requested none ASA ASA2 Proposed Anesthesia Anesthesia Type: General Risk / Benefits Reviewed With: PT / POA / Parent / Guardian, Accepts Plan and Informed Consent Obtained History Surgery Operation Date: 04/05/20 08:20 Proposed Procedures p Laparoscopic Cholecystectomy, Possible Open - Lele Granados MD, FACS Height/Weight Height: 5 ft 11 in Weight: 88.9 kg Allergies Allergy/AdvReac Type Severity Reaction Status Date / Time No Known Allergies Allergy Mild Unverified 04/05/20 12:09 Medications Active Medications Generic Name Dose Route Start Last Admin Trade Name Freq PRN Reason Stop Dose Admin Lactated Ringer's 1,000 mls @ 75 mls/hr 04/05/20 08:42 04/05/20 11:09 Lr IV 05/05/20 08:41 75 mls/hr .[id number] CARL Infusion Piperacillin Sod/Tazobactam 115 mls @ 28.75 mls/hr 04/05/20 10:00 04/05/20 10:06 Sod 3.375 gm/ Dextrose IV 04/15/20 09:59 28.8 mls/hr Q8H CARL Administration Protocol NPO Date Last Intake of Fluids: 04/04/20 Time Last Intake of Fluids: 23:59 Date Last Intake of Solids: 04/04/20 Time Last Intake of Solids: 20:00 Past Medical History Medical History Elevated PSA HLD (hyperlipidemia) Prediabetes Exercise / Class Metabolic Activity II 4-5 Yardwork/Stairs/Walk up hill Negative for chest pain or shortness of breath. Past Family History Family History Mother Pancreatic cancer Grandfather Coronary heart disease Father , of covid -19 complications Pre-diabetes COVID-19 Stroke Brother Diabetes Past Surgical History Surgical History History of colonoscopy with polypectomy 2006 with hyperplastic polyp removal Colonoscopy in 2017 revealed diverticulosis History of thumb surgery Left status post fracture History of tonsillectomy and adenoidectomy Past Anesthesia History No Hx of Anesthesia Complications History of PONV No Hx of PONV Social History Smoking Status: Never smoker Do You Dip or Chew Tobacco: No Hx Alcohol Use: No Hx Substance Use: No substance use type: does not use Review of Systems Patient denies active symptoms of GERD. Physical Exam Vital Signs Last Vital Signs Temp 36.7 C 04/05/20 12:09 Pulse 64 04/05/20 12:09 Resp 18 04/05/20 12:09 BP 136/73 04/05/20 12:09 Pulse Ox 99 04/05/20 12:09 Constitutional not obese ENMT Mouth: + small oral opening; no TMJ abnormality Thyromental Distance: > or= 3.5 Finger Breadths Mallampati Class: II Neck normal visual inspection; neck extension not limited Respiratory normal respiratory effort Auscultation: lungs clear to auscultation bilaterally Cardiovascular Rate/Rhythm: regular rate and regular rhythm Heart Sounds: no murmur Neurologic moves all extremities Psychiatric Orientation: alert and oriented x 3 Testing Laboratory Results 04/05/20 01:32 04/05/20 01:32 Urine Color Yellow 04/05/20 04:00 Urine Appearance Clear (Clear) 04/05/20 04:00 Urine pH 5.0 (4.5-7.5) 04/05/20 04:00 Ur Specific [place] 1.030 (1.000-1.030) 04/05/20 04:00 Urine Protein Negative (Negative) 04/05/20 04:00 Urine Glucose (UA) Negative (Negative) 04/05/20 04:00 Urine Ketones Trace (Negative) H 04/05/20 04:00 Urine Nitrite Negative (Negative) 04/05/20 04:00 Ur Leukocyte Esterase Negative (Negative) 04/05/20 04:00 Blood Type O Negative 04/05/20 02:13 Antibody Screen NEGATIVE 04/05/20 02:13
[2020-04-05] MEDS ORDERED: ATROPINE SULFATE 0.1 MG/ML 10ML SYR IV PRN (13:00)
[2020-04-05] MEDS ORDERED: fentaNYL citrate 100 MCG/2 ML VIAL IV PRN (13:00)
[2020-04-05] MEDS ORDERED: ePHEDrine sulfate 50 MG/ML AMP IV PRN (13:00)
[2020-04-05] MEDS ORDERED: ACETAMINOPHEN 1000 MG/100 ML IV IV ONE (13:23)
[2020-04-05] MEDS ORDERED: ACETAMINOPHEN 1,000 MG/100 ML VIAL IV ONE (13:37)
--- NOTE | 2020-04-05 13:37 | Post Operative Brief Note ---
PG Immediate Post Op with CF Date of Surgery April 05, 2020 Pre & Post Diagnosis Operation Date: 04/05/20 08:20 Pre-Op Diagnosis: CHOLECYSTITIS Post-Op Diagnosis: CHOLECYSTITIS I identified the patient and participated in the time-out.: Yes Procedure Operation Date: 04/05/20 08:20 Actual Procedures p Laparoscopic Cholecystectomy(Not Applicable) - Lele Granados MD, FACS Surgeon Lele Granados MD, FACS Financing Analyst Genaro Delong Estimated Blood Loss 10 Findings Consistent with Post-Op Diagnosis Specimens Specimen Description: A.) gallbladder and contents
--- NOTE | 2020-04-05 14:00 | Operative Report (OR) ---
DATE OF OPERATION: 04/05/2020 NAME OF OPERATION: Laparoscopic cholecystectomy. PREOPERATIVE DIAGNOSIS: Acute cholecystitis. POSTOPERATIVE DIAGNOSIS: Same. STAFF SURGEON: Lele Granados MD. PREPARED FOODS SERVICE TEAM MEMBER: Codey Delong PA-C. ANESTHESIA: General. DESCRIPTION OF PROCEDURE: The patient was brought in the operating room and placed on the operating table in supine position. His abdomen was prepped and draped in usual fashion. Pneumatic stockings and orogastric tube were placed. My corporate law assistant helped with prepping, draping, removal of the gallbladder and closure of the wounds. 0.5% plain Marcaine was used to anesthetize all incisions. Incision was made at the umbilicus just above, carrying dissection down to the fascia, placing a Veress needle producing pneumoperitoneum. An 11 mm port placed at this level and under visualization, three 5 mm ports placed, 1 cephalad and 2 laterally. Gallbladder was grasped and retracted. It was inflamed and thickened consistent with acute cholecystitis, was aspirated of some bile. Dissection carried out the benjamin hepatis showing severe edema. Cystic duct and cystic artery identified, clipped and transected and the gallbladder dissected away from the liver bed. There was significant edema in the posterior wall. Gallbladder was placed in an Endobag. After appropriate irrigation and hemostasis, the Endobag was removed through the umbilical site. All ports were removed. The fascia at the umbilicus closed using interrupted 0 PDS suture. Skin was reapproximated using 5-0 Prolene. The patient was transferred to recovery room in stable condition. I attest to the content of the Intraoperative Record and any orders documented therein. Any exception s are noted below.
--- NOTE | 2020-04-05 14:26 | Anesthesiology Progress Note ---
Date of Service April 05, 2020 Anesthesia Post Procedure Vital Signs Vital Signs: Temp Pulse Pulse Pulse Resp BP BP 04/05/20 14:25 36.6 C 53 L 17 127/78 04/05/20 14:15 53 L 12 151/79 H 04/05/20 14:05 53 L 15 149/81 H 04/05/20 13:55 36.2 C L 57 L 16 140/82 04/05/20 12:09 36.7 C 64 18 136/73 04/05/20 09:22 36.8 C 60 18 148/80 H 04/05/20 08:50 36.8 C 60 18 148/60 H 04/05/20 07:45 54 L 16 117/77 04/05/20 06:30 125/76 04/05/20 06:00 124/77 04/05/20 05:30 113/73 04/05/20 05:00 120/74 04/05/20 04:51 137/75 04/05/20 01:37 51 L 20 151/82 H 04/05/20 00:53 36.4 C L 51 L 20 155/81 H Pulse Ox 04/05/20 14:25 94 04/05/20 14:15 96 04/05/20 14:05 99 04/05/20 13:55 98 04/05/20 12:09 99 04/05/20 09:22 96 04/05/20 08:50 96 04/05/20 07:45 95 04/05/20 06:30 97 04/05/20 06:00 98 04/05/20 05:30 98 04/05/20 05:00 97 04/05/20 04:51 98 04/05/20 01:37 98 04/05/20 00:53 100 Transfer of Care Handoff Completed per policy Notes Mental Status: alert / awake / arousable and participated in evaluation Patient Amnestic to Procedure: Yes Nausea / Vomiting: adequately controlled Pain: adequately controlled Airway Patency, RR, SpO2: stable & adequate BP & HR: stable & adequate Hydration State: stable & adequate Anesthetic Complications: no major complications apparent and Pt Satisfied with anesthetic care
[2020-04-05] MEDS ORDERED: HYDROCODONE/ACETAMOPHEN 5/325MG TAB PO PRN ×2 (14:49)
[2020-04-05] MEDS ORDERED: IBUPROFEN 600 MG TAB PO PRN (14:49)
[2020-04-05] MEDS ORDERED: SODIUM CHLORIDE 0.9% 1000ML 1,000 ML IV SCH (18:30)
[2020-04-05] MEDS: DOCUSATE SODIUM/SENNA 50/8.6MG TAB PO SCH (21:27)
[2020-04-06] MEDS: PIPERACILLIN/TAZOBACTAM 3.375 GM in DEXTROSE 5% 100 ML IV SCH ×3 (02:10→18:06)
--- NOTE | 2020-04-06 07:10 | Surgery Progress Note ---
Date of Service April 06, 2020 Assessment & Plan (1) S/P laparoscopic cholecystectomy: Patient had significant urine residual this morning greater than 600 requiring straight cath He has been voiding significant amounts He feels well vital signs are stable We will Hep-Lock his IV, advance his diet, courage ambulation Possible discharge later depending on his ability to urinate Continue IV antibiotics for now Admission and Anticipated Discharge Date Admission Date: April 05, 2020 Results & Data ([facility]) Vital Signs (Past 12 Hours) Vital Signs Temp Pulse Resp BP Pulse Ox 04/06/20 07:02 36.7 C 54 L 17 139/81 97 04/06/20 03:39 36.6 C 72 18 138/71 99 04/05/20 23:10 36.7 C 61 18 146/85 H 94 04/05/20 20:08 36.7 C 61 16 141/80 H 95 PG Care Time/CCT Total # of Minutes Spent Total Time Spent with Patient: Total time spent is greater than 50% in coordination of care (as documented) at patient's floor/unit and/or counseling patient: Coding Level of Care Code None Diagnoses S/P laparoscopic cholecystectomy Z90.49
[2020-04-06 07:11] LABS: Appearance Urine Clear (Clear); Bilirubin Urine Negative (Negative); Blood Urine Negative (Negative); Color Urine Yellow; Glucose Urine UA Negative (Negative); Ketones Urine Negative (Negative); Leukocyte Esterase Urine Negative (Negative); Nitrite Urine Negative (Negative); Protein Urine Negative (Negative); Urobilinogen Urine Negative (Negative); pH Urine 6.5 (4.5-7.5)
[2020-04-06 08:16] LABS: Basophils # (auto) 0.01 K/uL (0-0.2); Basophils % (auto) 0.1 %; Hemoglobin 12.8 g/dL (14.0-18.0); Immature Granulocytes # (auto) 0.02 K/uL (0.00-0.02); Immature Granulocytes % (auto) 0.2 %; Lymphocytes # (auto) 0.93 K/uL (1.2-3.4); Lymphocytes % (auto) 7.5 %; Mean Corpuscular Hgb Conc 31.2 g/dL (32-36); Mean Corpuscular Volume 89.7 fL (80-100); Mean Platelet Volume 10.5 fL (7.4-10.4); Monocytes % (auto) 9.6 %; Neutrophils # (auto) 10.32 K/uL (1.4-6.5); Neutrophils % (auto) 82.6 %; Platelet Count 204 K/uL (130-400); RDW Coefficient of Variation 13.4 % (11.5-14.5); RDW Standard Deviation 44.3 fL (36.4-46.3); Red Blood Count 4.57 M/uL (4.7-6.1); White Blood Count 12.48 K/uL (4.8-10.8)
--- NOTE | 2020-04-06 08:31 | Hospitalist Progress Note ---
Date of Service April 06, 2020 Assessment & Plan (1) Cholecystitis: Acute cholecystitis and status post Laparoscopic Cholecystectomy on this admission -on admission with Leukocytosis of 15k -patient admitted by general surgery team on 04/05/2020; is Laparoscopic Cholecystectomy by Lele Granados MD -has been on IV Zosyn, follow the WBC, likely can be transitioned to oral antibiotics upon hospital discharge as per general surgery service (2) Postoperative urinary retention: -04/06/2020 updates: Patient seen and examined in the AM. he is ambulatory and reports no acute pain or distress. Breathing on room air. No shortness of breath. No dizziness. No headache. Patient reports that he was seen by general surgery team today and he would have been able to be discharged but there was overnight urinary retention for which patient was straight catheterized by nursing staff. Patient denies any history of bladder or prostate problems or any urinary retention before. Presumably patient's urinary retention episode should be an isolated event as likely related to anesthesia from his laparoscopic cholecystectomy. In the meantime patient's AM labs are pending - will monitor WBC (downtrending to 12 K) , he is continuing on IV Zosyn while in the hospital (3) Prediabetes: -HbA1C 02/2020 was 6 -sliding scale insulin as needed while in the hospital if needed but patient does not meet criteria for actual diabetes (4) HLD (hyperlipidemia): -controlled with diet and exercise as outpatient (5) DVT prophylaxis: -SCD/TEDS Admission and Anticipated Discharge Date Admission Date: April 05, 2020 Subjective Patient seen and examined in the AM. he is ambulatory and reports no acute pain or distress. Breathing on room air. No shortness of breath. No dizziness. No headache. Patient reports that he was seen by general surgery team today and he would have been able to be discharged but there was overnight urinary retention for which patient was straight catheterized by nursing staff. Patient denies any history of bladder or prostate problems or any urinary retention before. Presumably patient's urinary retention episode should be an isolated event as likely related to anesthesia from his laparoscopic cholecystectomy. In the meantime patient's AM labs are pending - will monitor WBC, he is continuing on IV Zosyn while in the hospital Review of Systems 2 Review of Systems: All systems reviewed & are unremarkable except as noted in Subjective Physical Exam Constitutional: comfortable Eyes: PERRL, conjunctivae normal, anicteric sclerae EOM intact bilaterally ENMT: external ear and nose normal, oropharynx normal Neck: normal visual inspection Respiratory: normal respiratory effort, lungs clear to auscultation Cardiovascular: Rate/Rhythm: + bradycardic Gastrointestinal (Abdomen): Inspection/Auscultation: normal bowel sounds Percussion/Palpation: abdomen soft dressing over surgical incisions Musculoskeletal: Head/Neck/Chest: normocephalic and head atraumatic ambulatory Neurologic: PERRL, EOMI, accommodation nl, no face palsy, no dysarthria CN's II-XI intact bilaterally Psychiatric: A+Ox3, euthymic affect Results & Data Results & Data ([facility]) Vital Signs (Past 12 Hours) Vital Signs Temp Pulse Resp BP Pulse Ox 04/06/20 07:02 36.7 C 54 L 17 139/81 97 04/06/20 03:39 36.6 C 72 18 138/71 99 04/05/20 23:10 36.7 C 61 18 146/85 H 94
[2020-04-06 08:51] LABS: Albumin Level 3.4 gm/dl (3.4-5.0); BUN Creatinine Ratio 13.2 (10-20); Calcium 8.5 mg/dl (8.5-10.1); Creatinine Clr Calc Pharmacy 58.9 ml/min; Est GFR (African American) 63.9; Est GFR (Non-African American) 55.1; Potassium 4.1 mmol/L (3.5-5.1)
[2020-04-06 08:57] LABS: Albumin Globulin Ratio 1.1 (0.9-2); Bilirubin,Total 0.8 mg/dl (0.2-1); Globulin 3.2 gm/dl (2.5-4.0); Total Protein 6.6 gm/dl (6.4-8.2)
[2020-04-06] MEDS: DOCUSATE SODIUM/SENNA 50/8.6MG TAB PO SCH ×2 (09:51→20:00)
[2020-04-06] MEDS ORDERED: TAMSULOSIN HCL 0.4 MG CAP PO ONE (13:46)
[2020-04-06] MEDS ORDERED: MAGNESIUM HYDROXIDE SUSP 30 ML UDC PO ONE (13:46)
[2020-04-06] MEDS: MAGNESIUM HYDROXIDE SUSP 30 ML UDC PO SCH (20:00)
[2020-04-06] MEDS ORDERED: TAMSULOSIN HCL 0.4 MG CAP PO SCH (21:00)
[2020-04-07] MEDS: PIPERACILLIN/TAZOBACTAM 3.375 GM in DEXTROSE 5% 100 ML IV SCH (01:59)
--- NOTE | 2020-04-07 08:07 | Hospitalist Progress Note ---
Date of Service April 07, 2020 Assessment & Plan (1) Cholecystitis: Acute cholecystitis and status post Laparoscopic Cholecystectomy on this admission -on admission with Leukocytosis of 15k -patient admitted by general surgery team on 04/05/2020; is Laparoscopic Cholecystectomy by Lele Granados MD -has been on IV Zosyn while the hospital -04/07/2020: Patient being discharged by general surgery service with oral ciprofloxacin sent to his pharmacy (2) Postoperative urinary retention: -04/06/2020 updates: Patient seen and examined in the AM. he is ambulatory and reports no acute pain or distress. Breathing on room air. No shortness of breath. No dizziness. No headache. Patient reports that he was seen by general surgery team today and he would have been able to be discharged but there was overnight urinary retention for which patient was straight catheterized by nursing staff. Patient denies any history of bladder or prostate problems or any urinary retention before. Presumably patient's urinary retention episode should be an isolated event as likely related to anesthesia from his laparoscopic cholecystectomy. -04/07/2020: no further urinary retention episodes. general surgery service discharging on tamsulosin (3) Prediabetes: -HbA1C 02/2020 was 6 -sliding scale insulin as needed while in the hospital if needed but patient does not meet criteria for actual diabetes (4) HLD (hyperlipidemia): -controlled with diet and exercise as outpatient (5) DVT prophylaxis: -SCD/TEDs and ambulation while in the hospital -disposition: hospitalist medicine to sign off, patient to be discharged by general surgery service to home and he has been walking without any acute discomforts Admission and Anticipated Discharge Date Admission Date: April 05, 2020 Subjective hospitalist medicine to sign off, patient to be discharged by general surgery service to home and he has been walking without any acute discomforts. Patient being discharged by general surgery service with oral ciprofloxacin sent to his pharmacy. no further urinary retention episodes. general surgery service discharging on tamsulosin. patient denies any other symptoms on review of systems Review of Systems Review of Systems: All systems reviewed & are unremarkable except as noted in Subjective Physical Exam Constitutional: comfortable Eyes: PERRL, conjunctivae normal, anicteric sclerae EOM intact bilaterally ENMT: external ear and nose normal, oropharynx normal Neck: normal visual inspection Respiratory: normal respiratory effort, lungs clear to auscultation Cardiovascular: Rate/Rhythm: + bradycardic Gastrointestinal (Abdomen): Inspection/Auscultation: normal bowel sounds Percussion/Palpation: abdomen soft Musculoskeletal: Head/Neck/Chest: normocephalic and head atraumatic Neurologic: PERRL, EOMI, accommodation nl, no face palsy, no dysarthria CN's II-XI intact bilaterally Psychiatric: A+Ox3, euthymic affect Results & Data Results & Data ([facility]) Vital Signs (Past 12 Hours) Vital Signs Temp Pulse Resp BP Pulse Ox 04/06/20 23:29 36.6 C 100 H 16 122/66 97
[2020-04-07 09:24] LABS: Creatinine Clr Calc Pharmacy 54.8 ml/min; Est GFR (African American) 58.6; Est GFR (Non-African American) 50.5
[2020-04-07] MEDS: MAGNESIUM HYDROXIDE SUSP 30 ML UDC PO SCH ×2 (10:07→10:13)
[2020-04-07] MEDS: DOCUSATE SODIUM/SENNA 50/8.6MG TAB PO SCH ×2 (10:07→10:13)
--- NOTE | 2020-04-08 01:04 | Discharge Summary (DS) ---
PRINCIPAL DIAGNOSIS: Acute cholecystitis. OTHER DIAGNOSIS: Urinary retention. PROCEDURES: The patient underwent a laparoscopic cholecystectomy. HISTORY OF PRESENT ILLNESS: The patient is a 64-year-old male presenting to the Emergency Room on 04/05/2020 with acute abdominal pain, diagnosis of acute cholecystitis. HOSPITAL COURSE: The patient was taken to the operating room on 04/05/2020 where he underwent laparoscopic cholecystectomy without complication. He did have relatively severe acute cholecystitis. Postoperatively, the patient had some problems with urinary retention requiring Flomax, which has improved the situation. I did discuss with the urology team the possible need of followup and we will discharge the patient home now on Flomax and pain medication and antibiotics and monitor him as an outpatient.
== END 2020-04-07 10:30 | disposition home or self-care (01) ==
LOC: ED 00:49 → INTOOBSV 04:37 → 3N 04:37